=== PATIENT | male | born 1945 | race Caucasian/White ===

== ENCOUNTER 2021-06-11 16:11 | Emergency (ER) | payer OTHER ==
[~2021-06-11] VITALS: Ht 172.7 cm; Wt 72.6 kg
--- NOTE | ~2021-06-11 | EMS ---
[address] [address] EMS Patient Care Report Name: BRENDA VALERO Room #: DEP GRISELDA Parker#: [id number] Admission: 06/11/21 Attend Phys: Discharge: 06/11/21 Date of : 41 Report #: [id number] THIS REPORT FOR: //name// Report Transmitted: 06/14/2021 13:09 EMS Care Summary [place], [place]/[facility] Incident [id number] @ 06/11/2021 15:25 Incident Location [address] [place] [address] Patient NASIR VALERO Male, 76 Years 1945 Patient Address [address] [place] [id number] Patient History Atrial Fibrillation,Alcohol Abuse,Respiratory Failure,Coronary Artery Disease (CAD), Patient Allergies No known allergies, Patient Medications Sertraline, Carvedilol, Atorvastatin, Finasteride, Tylenol, Lisinopril, Chief Complaint SI behavioral Disposition Transported No Lights/[place] Dispatch Reason Psychiatric Problem/Abnormal Behavior/Suicide Attempt Transported To [facility] Narrative 76 y/o male SI [address] [address] EMS Patient Care Report Name: BRENDA VALERO Room #: DEP ER Elena#: [id number] Admission: 06/11/21 Attend Phys: Discharge: 06/11/21 Date of : 41 Report #: [id number] Upon arrival the pt was watching TV. The pt nurse met us at the elevator doors. She advised us that the pt was unhappy about his living situation here at [facility] and is threatening suicide. The pt is awake, conscious A&O x 4 with a GCS of 15. He has a patent airway, breathing is normal, and has a strong reg radial pulse. The pt states he is tired of the horrible living condition sat [place] and states he want's to kill himself because that would be better than him having to live here. The pt has no plan and states how is he suppose to kill himself when there is no way to kill himself up on this floor. The pt stood up with his walker and ambulated to the cot, the pt is slightly angry and upset. I calmed the pt down and talked with him. He sat on the cot on his own, placed himself in a position of comfort, was secured to the cot, and loaded into the ambulance. VS were taken D-123. The pt psychiatric physician wants the pt taken to [place]. The pt was transported to [place] with no incident or changes with the pt during the transport. Initial Vitals @15:51P: 67,BP: 186/94,CO: 3,SpO2: 96, @15:48P: 61,R: 14,BP: 202/92,Pain: 0/10,GCS: 15,Glucose: 123,SpO2: 99,Revised Trauma: 12, Assessments @15:53MENTAL:Person Oriented,Place Oriented,Time Oriented,Event Oriented,SKIN:HEENT:Head/Face: No Abnormalities,Neck/Airway: No Abnormalities,LUNG SOUNDS:General: No Abnormalities,ABDOMEN:General: No Abnormalities,PELVIS//GI:No Abnormalities,EXTREMITIES:Capillary Refill: Right Upper: < 2 Sec,Capillary Refill: Left Upper: < 2 Sec,Left Arm: No Abnormalities,Right Arm: No Abnormalities,Left Leg: No Abnormalities,Right Leg: No Abnormalities,PULSE:Radial: 2+ Normal,NEURO:No Abnormalities, Impression Behavioral/psychiatric episode Procedures @15:51 ALS Assessment Response: UnchangedSucceeded Timeline 15:24,Call Received 15:24,Dispatch Notified 15:25,Dispatched 15:27,En Route 15:35,On Scene 15:36,At Patient 15:48,BP: 202/92 M,PULSE: 61,RR: 14 R,SPO2: 99 Ox,ETCO2: ,B,PAIN: 0,GCS: 15, 15:51,ALS Assessment,Response: UnchangedSucceeded, [address] [address] EMS Patient Care Report Name: BRENDA VALERO Room #: DEP GRISELDA Parker#: [id number] Admission: 06/11/21 Attend Phys: Discharge: 06/11/21 Date of : 41 Report #: [id number] 15:51,BP: 186/94 M,PULSE: 67,RR: R,SPO2: 96 Ox,ETCO2: ,BG: ,PAIN: ,GCS: , 15:52,Depart Scene 16:09,At Destination 16:16,Call Closed Disclaimer v1.1 Copyright 2021 [employer] This EMS Care Summary contains data elements from the applicable legal record (which may be displayed differently). It is designed to provide pertinent information for the following purposes: continuity of care, clinical quality, and state data reporting. The complete legal record is available to ED staff and administrators of the receiving hospital in [employer]'s Patient Tracker. All data is provided "as is."
[2021-06-11 16:12] VITALS: BP 168/88
[2021-06-11 16:42] LABS: ABSOLUTE NEUTROPHILS 4.2 thou/uL (1.4-8.2); BASOPHILS 0.6 % (0.0-2.0); EOSINOPHILS 5.7 % (0.0-3.0); HEMATOCRIT 36.8 % (42.0-52.0); HEMOGLOBIN 12.1 gm/dL (14.0-18.0); LYMPHOCYTES 25.6 % (24.0-44.0); MCH 30.4 pg (26.0-34.0); MCHC 32.8 g/dL (28.0-37.0); MCV 92.5 fL (80.0-100.0); MONOCYTES 13.2 % (1.0-8.0); PLATELET COUNT 227 thou/uL (150-400); POLYS 54.9 % (36.0-66.0); RBC 3.98 mil/uL (4.50-6.00); RDW 13.4 % (10.5-14.5); WBC 7.7 thou/uL (4.0-11.0)
[2021-06-11 16:59] LABS: URINE BILIRUBIN NEGATIVE (Negative); URINE BLOOD NEGATIVE (Negative); URINE CLARITY CLEAR; URINE COLOR YELLOW; URINE GLUCOSE-RANDOM* NEGATIVE (Negative); URINE KETONES NEGATIVE (Negative); URINE LEUKOCYTES-REFLEX NEGATIVE (Negative); URINE NITRITE-REFLEX NEGATIVE (Negative); URINE PROTEIN (DIPSTICK) NEGATIVE (Negative); URINE UROBILINOGEN 0.2 E.U./dl (0.2-1.0)
[2021-06-11 17:00] LABS: CALCIUM 9.2 mg/dL (8.5-10.1); CREATININE 1.4 mg/dL (0.7-1.3); POTASSIUM 4.2 mmol/L (3.5-5.1)
[2021-06-11 17:07] LABS: ALBUMIN 3.7 g/dL (3.4-5.0); TOTAL BILIRUBIN 0.4 mg/dL (0.2-1.0); TOTAL PROTEIN 6.6 g/dL (6.4-8.2)
--- NOTE | 2021-06-12 11:20 | EKG ---
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
== END 2021-06-11 19:15 | disposition home or self-care (01) ==
LOC: ER 16:11
PROVIDERS: Emergency Medicine
DX: R45.851 Suicidal ideations (principal); Z20.822 Contact with and (suspected) exposure to COVID-19; I48.91 Unspecified atrial fibrillation; I25.10 Atherosclerotic heart disease of native coronary artery without angina pectoris; I42.9 Cardiomyopathy, unspecified; Z87.891 Personal history of nicotine dependence